=== PATIENT | male | born 1985 | race Caucasian/White ===

== ENCOUNTER 2018-05-01 08:15 | Day surgery (SDC) | payer OTHER ==
[2018-05-01 08:56] VITALS: BMI 28.8
--- NOTE | 2018-05-01 10:02 | CP.SDSHP ---
Same Day Surgery H & P - History Proposed Procedure: COLONSCOPY Pre-Op Diagnosis: SEE NOTES , STRONG FAMILY HX. OF COLON CA - Previous Medical/Surgical History Misc: Other Pain: 2.Mild Pain - Allergies Allergies: Allergies No Known Allergies Allergy (Verified 05/01/18 08:56) - Physical Exam General Appearance: N Vital Signs: Vital Signs 05/01/18 08:40 Temperature 98.4 F Pulse Rate 76 Respiratory 19 Rate Blood Pressure 137/78 O2 Sat by Pulse 97 Oximetry Mental Status: Alert & Oriented x3 Neuro: WNL Heart: WNL Lungs: WNL GI: WNL - {Optional Preform as Required} Breast: WNL Abdomen: Other Rectal: WNL Integument: WNL : WNL Ortho: WNL ENT: WNL - Impression Pt. Evaluated Today:Candidate for Anesthesia & Procedure: Yes - Date & Time Time: 10:02 Short Stay Discharge - Short Stay Discharge Admitting Diagnosis/Reason for Visit: ENCOUNTER FOR SCREENING FOR MALIGNANT NEOPLASM OF Disposition: HOME/ ROUTINE
[2018-05-01] MEDS ORDERED: Lactated Ringer's 1,000 ML IV ONE (10:03)
[2018-05-01] MEDS ORDERED: Propofol 10 mg/ml Inj (20 ML) ONE (10:07)
[2018-05-01] MEDS ORDERED: Lidocaine Hydrochloride 5 ML INJ ONE (10:15)
[2018-05-01 10:46] VITALS: TEMP 97.6; O2SAT 100
[2018-05-01] MEDS ORDERED: Lactated Ringer's 500 ML IV SCH (11:00)
[2018-05-01 11:24] VITALS: RESP 18
[2018-05-01] MEDS ORDERED: Belladonna-Phenobarbital PO ONE (11:30)
[2018-05-01 12:06] VITALS: BP 99/68; PULSE 71
== END 2018-05-01 11:22 | disposition home or self-care (01) ==
LOC: C.ENDO 08:15
PROVIDERS: ATTEND Specialist
DX: Z12.11 Encounter for screening for malignant neoplasm of colon (principal); D12.4 Benign neoplasm of descending colon; K58.9 Irritable bowel syndrome, unspecified
CPT/HCPCS: 45380; 88305; J2704; J3010; J7120